=== PATIENT | male | born 1995 ===

== ENCOUNTER 2019-10-10 03:21 | Emergency (ER) | payer OTHER ==
[2019-10-10] MEDS ORDERED: LIDOCAINE 1%/EPINEPHRINE 1:100,000 VIAL (20 ML) INFILTRATI ONE (03:37)
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
[2019-10-10 13:45] VITALS: BP 146/89
== END 2019-10-10 03:55 | disposition left against medical advice (07) ==
LOC: ED 03:21
DX: S01.01XA Laceration without foreign body of scalp, initial encounter (principal); V89.2XXA Person injured in unspecified motor-vehicle accident, traffic, initial encounter; Y93.89 Activity, other specified; Y92.488 Other paved roadways as the place of occurrence of the external cause; Y99.8 Other external cause status
CPT/HCPCS: 99283